=== PATIENT | male | born 1995 | race African-American/Black ===

== ENCOUNTER 2017-09-26 14:53 | Emergency (ER) | payer SELFPAY ==
[~2017-09-26] VITALS: Ht 180.3 cm; Wt 102.1 kg
--- OUTSIDE RECORDS SUMMARY | 2017-09-26 14:56 | XMS REPORT ---
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 Allergies, Adverse Reactions, Alerts This patient has no known allergies or adverse reactions. Medications This patient has no known medications. Encounters Start Date/Time End Date/Time Encounter Type Admission Type Attending Clinicians Care Facility Care Department Encounter ID 2017-04-04 16:26:39 2017-04-04 16:26:39 Emergency [facility] [id number] 2017-04-04 14:08:29 2017-04-04 14:08:29 Emergency [facility] [id number]
[2017-09-26] MEDS ORDERED: AZITHROMYCIN 250 MG TAB PO ONE (15:30)
[2017-09-26] MEDS ORDERED: CEFTRIAXONE SOD 1 GM VIAL IM ONE (15:30)
[2017-09-26] MEDS ORDERED: IBUPROFEN 600 MG TAB PO STA (15:30)
[2017-09-26 15:49] LABS: BILIRUBIN,URINE NEGATIVE (NEGATIVE); CLARITY,URINE CLEAR (CLEAR); COLOR,URINE YELLOW (YELLOW); KETONES,URINE NEGATIVE (NEGATIVE); LEUKOCYTE ESTERASE ,URINE TRACE (NEGATIVE); NITRITE,URINE NEGATIVE (NEGATIVE); PROTEIN,URINE DIPSTICK NEGATIVE (NEGATIVE); URINE UROBILINOGEN 0.2 mg/dL (0.2 - 1)
[2017-09-26 16:03] LABS: BACTERIA,URINE RARE /HPF; MUCUS,URINE RARE (RARE); RBC,URINE 0-5 /HPF (0-5)
[2017-09-26] MEDS ORDERED: IBUPROFEN 600 MG TAB ONE (19:56)
[2017-09-26] MEDS ORDERED: CEFTRIAXONE SOD 1 GM VIAL ONE ×2 (19:56→19:57)
[2017-09-26] MEDS ORDERED: AZITHROMYCIN 250 MG TAB ONE (19:56)
== END 2017-09-26 20:05 | disposition home or self-care (01) ==
LOC: ER 14:53
DX: N34.1 Nonspecific urethritis (principal)
CPT/HCPCS: 81001; 87086; 99282; J0696